=== PATIENT | male | born 1970 | race Caucasian/White ===

== ENCOUNTER 2019-03-20 05:41 | Day surgery (SDC) | payer OTHER ==
[~2019-03-20] VITALS: Ht 185.4 cm; Wt 99.8 kg
[2019-03-20] VITALS (7 sets, daily range): BP systolic 91–145; BP diastolic 62–72
[2019-03-20] MEDS ORDERED: WELLBUTRIN XL150 MG ORAL (06:28)
[2019-03-20] MEDS ORDERED: FINASTERIDE1 MG PO (06:28)
[2019-03-20] MEDS ORDERED: CLOMIPHENE CITR50 MG PO (06:28)
[2019-03-20] MEDS ORDERED: LR 1000ml 1,000 ML IVLG SCH ×2 (06:39→07:00)
--- NOTE | 2019-03-20 06:39 | Anethesia Preoperative Eval ---
Anesthesia Pre-op PMH/ROS General Date of Evaluation: Mar 20, 2019 Anesthesiologist: Artemio ASA Score: ASA 2 Mallampati Score Class I : Soft palate, uvula, fauces, pillars visible Class II: Soft palate, uvula, fauces visible Class III: Soft palate, base of uvula visible Class IV: Only hard plate visible Mallampati Classification: Class III Surgeon: Derik Diagnosis: screening Surgical Procedure: colonoscopy Anesthesia History: none Family History: no anesthesia problems Allergies: Coded Allergies: AMPICILLIN (Verified Allergy, Intermediate, skin rash, 03/20/19) ERYTHROMYCIN BASE (Verified Allergy, Intermediate, SKIN RASH, 03/20/19) SULFA (SULFONAMIDE ANTIBIOTICS) (Verified Allergy, Intermediate, SKIN RASH , 03/20/19) CEFTRIAXONE (Verified Allergy, Unknown, 03/20/19) Medications: see eMAR Patient NPO?: Yes NPO Date: Mar 19, 2019 NPO Time: 22:00 Past Medical History Cardiovascular: Denies: HTN, CAD, MO, valve dz, arrhythmia, other Pulmonary: Denies: asthma, COPD, SHANIQUE, other Gastrointestinal/Genitourinary: Reports: GERD; Denies: CRI, ESRD, other Neurologic/Psychiatric: Reports: depression/anxiety; Denies: dementia, CVA, TIA, other Endocrine: Denies: DM, hypothyroidism, steroids, other HEENT: Denies: cataract (L), cataract (R), glaucoma, ILIAMNA (L), ILIAMNA (R), other Hematology/Immune: Denies: anemia, DVT, bleeding disorder, other Musculoskeletal/Integumentary: Denies: OA, RA, DJD, DDD, edema, other PSxH Narrative: denies Anesthesia Pre-op Phys. Exam Physician Exam Last Vital Signs Date Time Temp Pulse Resp B/P (MAP) Pulse Ox O2 Delivery O2 Flow Rate FiO2 03/20/19 06:29 98.3 73 20 145/68 95 Room Air Constitutional: NAD Cardiovascular: RRR Respiratory: CTA Airway Exam Mallampati Score: Class III MO: limited ROM: limited Anesthesia Pre-op A/P Labs see chart Studies Pre-op Studies: EKG - sr Risk Assessment & Plan Assessment: ASA II Plan: MAC Status Change Before Surgery: No Pre-Antibiotics Drug: N/A Za Espinal MD Mar 20, 2019 06:39
[2019-03-20] MEDS ORDERED: DiphenhydrAMINE 50mg/ml Inj IVP PRN (06:45)
--- NOTE | 2019-03-20 06:57 | Pre-Procedure Note/Attestation ---
Pre-Procedure Note/Attestation Complete Prior to Procedure Planned Procedure: not applicable Procedure Narrative: Colonoscopy, possible biopsy, polypectomy, hemostasis, submucosal injection Indications for Procedure Pre-Operative Diagnosis: cancer screening Attestation I attest that I discussed the nature of the procedure; its benefits; risks and complications; and alternatives (and the risks and benefits of such alternatives ), prior to the procedure, with the patient (or the patient's legal screening representative). I attest that, if there was a reasonable possibility of needing a blood transfusion, the patient (or the patient's legal screening representative) was given the [facility] standardized written summary, pursuant to the Roni Smita Blood Safety Act ([place] Health and Safety Code # 1645, as amended). I attest that I re-evaluated the patient just prior to the surgery and that there has been no change in the patient's H&P, except as documented below: Mimi More MD Mar 20, 2019 06:57
[2019-03-20] MEDS ORDERED: Propofol 200mg/20ml IV ONE (07:00)
[2019-03-20] MEDS ORDERED: Lidocaine 1% MPF 10mg/ml 5ml ONE (07:00)
[2019-03-20] MEDS ORDERED: LR 1000ml ONE (07:00)
--- NOTE | 2019-03-20 07:29 | Endoscopy Procedure Note ---
Endoscopy Procedure Note General Procedures Performed: colonoscopy Operative Findings/Diagnosis: sigmoid polyp, sigmoid lipoma, sigmoid diverticulaq, moderate internal hemo Specimen: yes Pt Tolerated Procedure Well: Yes Estimated Blood Loss: minimal Anesthesia Anesthesiologist: Za Ulloa MD Anesthesia: moderate sedation Medications Medication Given: see anesthesia record Inserted Devices Implant(s) used?: No Quality Quality of Bowel Preparation: Fair Did scope reach the cecum?: Yes Was there any complications?: No GI Core Measures 50 yrs or older w/o bx or poly: No 10yrs. F/U recommended: No If not recommended, why?: Above average risk Mimi More MD Mar 20, 2019 07:29
--- NOTE | 2019-03-20 07:39 | Immediate Post-Op Evaluation ---
Immediate Post-Op Evalulation Immediate Post-Op Evalulation Procedure: colonoscopy Date of Evaluation: Mar 20, 2019 Time of Evaluation: 07:41 IV Fluids: 400 Blood Products: 0 Estimated Blood Loss: 0 Urinary Output: 0 Blood Pressure Systolic: 91 Blood Pressure Diastolic: 62 Pulse Rate: 64 Respiratory Rate: 16 O2 Sat by Pulse Oximetry: 100 Temperature (Fahrenheit): 97.2 Pain Score (1-10): 0 Nausea: No Vomiting: No Complications 0 Patient Status: awake, reacts, patent, none Hydration Status: adequate Drug: N/a Za Espinal MD Mar 20, 2019 07:39
--- NOTE | 2019-03-20 07:40 | 48 Hour Post Anesthesia Eval ---
Post Anesthesia Evaluation Procedure: colonoscopy Date of Evaluation: Mar 20, 2019 Airway: patent Nausea: No Vomiting: No Pain Intensity: 0 Hydration Status: adequate Cardiopulmonary Status: at baseline Mental Status/LOC: patient returned to baseline Post-Anesthesia Complications: 0 Follow-up care needed: ready to discharge Za Espinal MD Mar 20, 2019 07:40
--- NOTE | 2019-03-20 12:00 | Operative Note - Dictated ---
DATE OF OPERATION: 03/20/2019 PREPROCEDURE DIAGNOSIS: Cancer screening. POSTPROCEDURE DIAGNOSIS: Sigmoid polyp, sigmoid lipoma, sigmoid diverticulosis, mild internal hemorrhoids. PROCEDURE: Colonoscopy with cold forceps biopsy. SURGEON: Mimi More M.D. ANESTHESIOLOGIST: Za Ulloa M.D. ANESTHESIA: Propofol sedation. INDICATION FOR PROCEDURE: The patient is a 48-year-old male, who was sent to my office by his healthcare provider, CLIFTON Peterson, who sent the patient for a first time colonoscopy. The patient has a history of anal condyloma and a positive family history of cancer in his mother at a young age in which she had uterine, kidney, and breast cancer at age 40. The patient has never had a colonoscopy. In the light of his age, it was determined at this time to proceed with the first time colonoscopy. DESCRIPTION OF PROCEDURE: Upon consent of the patient, the patient was brought to the procedure room and placed in left lateral decubitus position. Once adequate sedation was established with propofol drip, digital rectal exam was performed, which showed some mild internal hemorrhoids and a smooth prostate. The Olympus colonoscope was advanced through the anus into the rectum. The descending colon, splenic flexure, transverse colon, hepatic flexure, and ascending colon were visualized. The cecum was easily reached and the ileocecal valve and appendiceal orifice were identified. The patient's prep was noted to be fair. The terminal ileum was intubated and was noted to be normal. The colonoscope was slowly withdrawn. There was noted to be scattered sigmoid diverticulosis, which were not acutely inflamed. There was a sigmoid lipoma, which on showed a yellow fat of the lipoma. There was also a sigmoid polyp, which was removed with cold forceps biopsy and were sent off the field as separate specimen. Upon reaching the rectum, the colonoscope was retroflexed, sigmoid polyp, which was removed and sent off the field as specimen. Upon reaching the rectum, the colonoscope was retroflexed and noted to be mild internal hemorrhoids. The scope was straightened, air was evacuated from the rectum, the colonoscope was removed. The patient was awakened from anesthesia and brought to postanesthesia recovery in stable condition. There were no complications. IMPRESSION: Sigmoid polyp, sigmoid diverticulosis, sigmoid lipoma, mild internal hemorrhoids. PLAN: Repeat colonoscopy in five years. Continue high-fiber diet, yearly followup. Mimi More M.D. DR: GABY JOB#: [id number] CC: Mimi More M.D.; Fax#: [phone] CLIFTON Peterson
== END 2019-03-20 08:40 | disposition home or self-care (01) ==
LOC: GAS 05:41
DX: Z12.11 Encounter for screening for malignant neoplasm of colon (principal); K62.5 Hemorrhage of anus and rectum; K57.90 Diverticulosis of intestine, part unspecified, without perforation or abscess without bleeding; K64.8 Other hemorrhoids; D17.79 Benign lipomatous neoplasm of other sites; K21.9 Gastro-esophageal reflux disease without esophagitis; F32.9 Major depressive disorder, single episode, unspecified; F41.9 Anxiety disorder, unspecified; Z88.0 Allergy status to penicillin; Z88.2 Allergy status to sulfonamides
CPT/HCPCS: 45380; J2704; J7120; 94003; 94150